=== PATIENT | female | born 1975 | race African-American/Black ===

== ENCOUNTER 2022-02-11 20:27 | Emergency (ER) | payer OTHER ==
[2022-02-11 20:41] VITALS: BP 128/90; PULSE 110; TEMP 99.7; BMI 25.8
[2022-02-11] MEDS ORDERED: SODIUM CHLORIDE 0.9% 500 ML INFUS.BAG IV ONE (20:44)
[2022-02-11] MEDS ORDERED: ACETAMINOPHEN 325 MG TABLET (FP) PO ONE (20:58)
[2022-02-11] MEDS ORDERED: ACETAMINOPHEN 325 MG TABLET (FP) ONE (20:59)
[2022-02-11 21:54] LABS: CALCIUM 9.1 mg/dL (8.5-10.1)
[2022-02-11 21:55] LABS: ALBUMIN 3.5 g/dl (3.4-5.0)
[2022-02-11 21:58] LABS: CREATININE 0.8 mg/dL (0.55-1.3)
[2022-02-11 22:00] LABS: BILIRUBIN,TOTAL 0.3 mg/dL (0.2-1); TOT PROT 8.7 g/dl (6.4-8.2)
[2022-02-11 22:18] LABS: BASO % 1.2 % (0-2.0); EOS % 2.6 % (0-4.5); HEMATOCRIT 39.8 % (32.4-45.2); HEMOGLOBIN 13.2 GM/dL (10.7-15.3); LYMPH % 37.8 % (8-40); MCH 27.1 pg (25.7-33.7); MCHC 33.1 g/dl (32.0-36.0); MEAN CELL VOLUME 82.1 fl (80-96); MEAN PLT VOLUME 8.6 fl (7.5-11.1); MONO % 6.5 % (3.8-10.2); NEUT % 51.9 % (42.8-82.8); PLATELET COUNT 266 10^3/uL (134-434); RBC 4.85 M/mm3 (3.60-5.2); WHITE BLOOD COUNT 6.9 K/mm3 (4.0-10.0)
== END 2022-02-12 03:37 | disposition home or self-care (01) ==
LOC: JER 20:27
DX: R79.1 Abnormal coagulation profile (principal)
CPT/HCPCS: 36415; 71275-TC; 80053; 84484; 84703; 85025; 85379; 93005; 93010; 99285-25; Q9967

== ENCOUNTER 2024-02-19 12:53 | Emergency (ER) | payer OTHER ==
[2024-02-19 13:02] VITALS: BP 120/83; PULSE 97; RESP 18; TEMP 98.7; BMI 26.4
== END 2024-02-19 15:22 | disposition home or self-care (01) ==
LOC: JERFT 12:53
DX: T23.231A Burn of second degree of multiple right fingers (nail), not including thumb, initial encounter (principal); R20.0 Anesthesia of skin; X15.8XXA Contact with other hot household appliances, initial encounter; Y93.G3 Activity, cooking and baking
CPT/HCPCS: 99283-25